=== PATIENT | male | born 1955 | race Caucasian/White ===

== ENCOUNTER 2017-03-01 13:19 | Emergency (ER) | payer BC ==
[2017-03-01 13:26] VITALS: TEMP 97.7
--- NOTE | 2017-03-01 14:08 | EDPHY ---
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 while in bed he felt a sudden sharp stabbing pain to the mid dorsal of his right foot. The pain lasted 3-5 seconds and was describes excruciating. The pain returned approximately every 10 minutes. Over the next few hours the longevity of the pain increased and the interval decreased. He subsequently went to [facility] urgent [facility] and referred to the ER for evaluation, given ibuprofen there. He has not had symptoms since being given ibuprofen at the urgent care. Currently asymptomatic. At no point has he describes discoloration, paresthesia. At no point has he experience back pain, abdominal pain, proximal lower extremity pain. He search the bed for possible spiders that he did not find any. He denies puncture wound or discoloration.Denies abdominal pain or cramping. Denies nausea or vomiting. Denies fever chills. PRIMARY CARE PROVIDER:Demetrius REVIEW OF SYSTEMS: A ten point review of systems was performed and is negative with the exception of the items mentioned in the HPI PAST MEDICAL & SURGICAL HISTORY: Chronic DVT left lower extremity on chronic Coumadin anticoagulant SOCIAL HISTORY: PHYSICAL EXAM (Prior to examination, patient consented to physical exam, hands were washed and my usual and customary physical exam procedures followed) 1) GENERAL: Well-developed, well-nourished, alert and oriented. Appears to be in no acute distress. Smiling, shakes my hand 2) HEAD: Normocephalic, atraumatic 3) HEENT: Pupils equal, round, reactive to light bilaterally. Sclera anicteric. 4) NECK: Full range of motion, no meningeal signs. 5) LUNGS: Clear auscultation bilaterally 6) HEART: Regular rate and rhythm, no murmur, no heave, no gallop. 7) ABDOMEN: No guarding, no rebound, no focal tenderness, negative McBurney's, negative Gaines's, negative Rovsing's, negative peritoneal sign, 8) MUSCULOSKELETAL: right lower extremity: Foot is examined, no puncture wounds, no discoloration, DP and PT pulses are 2+ with brisk capillary refill. Normal color normal temperature. [place] coloration. No fluctuance. No crepitus. no erythema. Negative Homans no palpable cord. Compartments are soft. Full range of motion of the ankle, foot, toes which do not elicit pain. 9) BACK: No CVA tenderness. 10) SKIN: No rash, no petechiae. 11) Psychiatric: Patient is oriented X 3, there is no agitation. DIFFERENTIAL DIAGNOSIS: in no particular order including but limited to spider bite, neuropathic pain, DVT, arterial occlusion, compartment syndrome , occult fracture - Personal History Current Tetanus Diphtheria and Acellular Pertussis (TDAP): Yes - Medical/Surgical History Other PMH: OA; L foot fusion; DVTs. HTN, cholesterol. gout - Social History Smoking Status: Never smoked Constitutional: Initial Vital Signs Temperature (C) 36.5 C 03/01/17 13:20 Heart Rate 65 03/01/17 13:20 Respiratory Rate 18 03/01/17 13:20 Blood Pressure 169/106 H 03/01/17 13:20 O2 Sat (%) 98 03/01/17 13:20 O2 Delivery Mode Room Air Allergies/Adverse Reactions: emycin Allergy (Intermediate, Uncoded 03/01/17 13:26) mucosal swelling Home Medications: Medication Instructions Recorded Allopurinol [Allopurinol 100 MG 100 mg PO DAILY 03/01/17 (*)] Levothyroxine [Synthroid 200 mcg 200 mcg PO DAILY06 03/01/17 (*)] Losartan Potassium [Cozaar] 100 mg PO 03/01/17 Simvastatin [Zocor] 80 mg PO DAILY18 03/01/17 Verapamil ER [Calan SR/ER 240MG 240 mg PO DAILY8 03/01/17 (*)] Warfarin Sodium [Coumadin 5MG (*)] 5 mg PO DAILY16 03/01/17 lamoTRIgine [LamICTAL XR] 300 mg PO 03/01/17 Medical Decision Making ED Course/Re-evaluation: 2:08 p.m.: This patient is currently asymptomatic and has unremarkable exam hip , there is no discoloration, has brisk pulses. Will obtain ultrasound to rule out DVT of the right lower extremity. I reviewed the patient's x-rays performed at outpatient [facility] interpreted by the radiologist showing no definitive fracture. 3:00 p.m.: Re-evaluation, patient remains asymptomatic 3:45 p.m.: Re-evaluation he remains asymptomatic while in the ER 4:39 p.m.: Ultrasound lower extremity is negative per Radiology interpretation 4:45 p.m.: Patient was re-evaluated. Discussed his negative imaging. He remains asymptomatic while in the ER. He is neurovascular intact with normal color normal temperature, no pain with palpation, subjective or objective pain. The specific etiology of his pain earlier today is not completely clear at this time. At this point however I do not identify definitive indication for further diagnostic studies. Doubt arterial occlusion. We discussed possibility of neuropathic pain. Doubt compartment syndrome. Doubt cellulitis. I recommended elevation, follow up with primary care provider in 24 hours. In the meantime strict return precautions instructions provided. Departure - Departure Disposition: Home, Routine, Self-Care Clinical Impression: Right foot pain Condition: Good Instructions: Foot Sprain (ED) Additional Instructions: Return to the emergency department immediately if you develop discoloration, return of pain, or any other symptoms that concern you. Referrals: SILVIA FISHER [Primary Care Provider] - 1 day without fail
[2017-03-01 16:45] VITALS: PULSE 69
[2017-03-01 16:56] VITALS: BP 132/65; RESP 18; O2SAT 95
== END 2017-03-01 16:50 | disposition home or self-care (01) ==
DX: M79.671 Pain in right foot (principal); I10 Essential (primary) hypertension; Z79.01 Long term (current) use of anticoagulants